=== PATIENT | male | born 1985 | race Caucasian/White ===

== ENCOUNTER 2016-07-31 00:10 | Emergency (ER) | payer OTHER ==
--- NOTE | 2016-07-31 00:14 | EDPHY ---
H & P HPI/ROS: HPI CHIEF COMPLAINT: Diarrhea, generalized weakness, lightheadedness HISTORY OF PRESENT ILLNESS: This patient very pleasant 31-year-old male no significant medical history does not take any daily medications does present to the emergency room at 12:30 p.m. at night for nausea, diarrhea and feeling lightheaded. Patient tells me around 9 o'clock this evening history him some abdominal cramping across his entire abdomen became nauseous without vomiting he then went to the bathroom and had a large diarrheal bowel movement watery, no blood. He tells me this made him feel very lightheaded he had abdominal cramping he was having shivering and laid on the ground in the bathroom. States should bring continued for close to an hour they called the nurse hotline and was recommended to come to the emergency room. patient does tell me that he had 2 beers earlier. Upon arrival here in the emergency room he does not appear toxic he does appear slightly dehydrated his abdomen is soft nontender. Past Medical History: No significant medical history Past Surgical History: No significant surgical history Social History: occasional alcohol use, denies drugs or tobacco Family History: Noncontributory ROS REVIEW OF SYSTEMS: A comprehensive 10 point review of systems is otherwise negative aside from elements mentioned in the history of present illness. Exam Constitutional appears well nontoxic, triage nursing summary reviewed, vital signs reviewed, awake/alert. Eyes normal conjunctivae and sclera, EOMI, PERRLA. HENT normal inspection, atraumatic, moist mucus membranes, no epistaxis, neck supple/ no meningismus, no raccoon eyes. Respiratory clear to auscultation bilaterally, normal breath sounds, no respiratory distress, no wheezing. Cardiovascular rate normal, regular rhythm, no murmur, no edema, distal pulses normal. Gastrointestinal soft, non-tender, no rebound, no guarding, normal bowel sounds, no distension, no pulsatile mass. Genitourinary no CVA tenderness. Musculoskeletal no midline vertebral tenderness, full range of motion, no calf swelling, no tenderness of extremities, no meningismus, good pulses, neurovascularly intact. Skin pink, warm, & dry, no rash, skin atraumatic. Neurologic awake, alert and oriented x 3, AAOx3, moves all 4 extremities equally, motor intact, sensory intact, CN II-XII intact, normal cerebellar, normal vision, normal speech. Psychiatric normal mood/affect. Heme/Lymph/Immune no lymphadenopathy. Differential Diagnosis: Includes but is not limited to in a particular order dehydration, electrolyte abnormality, acute nausea vomiting and diarrhea, viral illness, diarrheal illness, doubt acute appendicitis Medical Decision Making: this patient had an IV established obtain blood work including abdominal labs, patient be hydrated 2 L normal saline bolus patient received IV Zofran 4 mg for nausea and will re-evaluate him at this time is abdomen is soft nontender I do not feel that he needs any imaging of his abdomen specifically I do not feel that he has acute appendicitis given benign Abdomen. Re-evaluation: 0336: re-examination at this time this patient is resting comfortably his abdomen is soft nontender no guarding or peritoneal signs. He ambulated well throughout the emergency room without any difficulty he is not vomiting. He p.o. challenge well as blood work is reassuring for mild leukocytosis most likely from acute nausea vomiting and diarrhea. He feels comfortable going home does understand return emergency room if develops any worsening symptoms includes abdominal pain fever or vomiting. He did receive 2 L and Zofran here in emergency room and feels much better. He is requesting discharge. Source: Patient Constitutional: Initial Vital Signs Temperature (C) 36.5 C 07/31/16 00:14 Heart Rate 104 H 07/31/16 00:14 Respiratory Rate 18 07/31/16 00:14 Blood Pressure 106/75 07/31/16 00:14 O2 Sat (%) 99 07/31/16 00:14 O2 Delivery Mode Room Air Allergies/Adverse Reactions: Penicillins Allergy (Verified 07/31/16 00:19) Home Medications: Medication Instructions Recorded NK [No Known Home Meds] 07/31/16 Medical Decision Making - Data Points Laboratory Results: Laboratory Results 07/31/16 00:35 07/31/16 00:35 07/31/16 07/31/16 00:56 00:35 WBC 14.48 H 10^3/uL (3.80-9.50) RBC 4.84 10^6/uL (4.40-6.38) Hgb 15.0 g/dL (13.7-17.5) Hct 43.3 % (40.0-51.0) MCV 89.5 fL (81.5-99.8) MCH 31.0 pg (27.9-34.1) MCHC 34.6 g/dL (32.4-36.7) RDW 12.3 % (11.5-15.2) Plt Count 258 10^3/uL (150-400) MPV 9.9 fL (8.7-11.7) Neut % (Auto) 87.2 H % (39.3-74.2) Lymph % (Auto) 7.4 L % (15.0-45.0) Gove % (Auto) 4.8 % (4.5-13.0) Eos % (Auto) 0.1 L % (0.6-7.6) Baso % (Auto) 0.3 % (0.3-1.7) Nucleat RBC Rel Count 0.0 % (0.0-0.2) Absolute Neuts (auto) 12.63 H 10^3/uL (1.70-6.50) Absolute Lymphs (auto) 1.07 10^3/uL (1.00-3.00) Absolute Monos (auto) 0.70 10^3/uL (0.30-0.80) Absolute Eos (auto) 0.01 L 10^3/uL (0.03-0.40) Absolute Basos (auto) 0.04 10^3/uL (0.02-0.10) Absolute Nucleated RBC 0.00 10^3/uL (0-0.01) Immature Gran % 0.2 % (0.0-1.1) Immature Gran # 0.03 10^3/uL (0.00-0.10) Sodium 144 mEq/L (134-144) Potassium 4.3 mEq/L (3.5-5.2) Chloride 104 mEq/L (97-110) Carbon Dioxide 27 mEq/l (22-31) Anion Gap 13 mEq/L (8-16) BUN 15 mg/dL (7-23) Creatinine 1.0 mg/dL (0.7-1.3) Estimated GFR > 60 Glucose 102 H mg/dL (70-100) Calcium 9.8 mg/dL (8.5-10.4) Total Bilirubin 0.8 mg/dL (0.1-1.4) Conjugated Bilirubin 0.4 mg/dL (0.0-0.5) Unconjugated Bilirubin 0.4 mg/dL (0.0-1.1) AST 19 IU/L (17-59) ALT 28 IU/L (21-72) Alkaline Phosphatase 65 IU/L (38-126) Total Protein 7.8 g/dL (6.3-8.2) Albumin 4.8 g/dL (3.5-5.0) Lipase 70.0 IU/L (23-300) Urine Color YELLOW Urine Appearance CLEAR Urine pH 7.0 (5.0-7.5) Ur Specific [place] 1.012 (1.002-1.030) Urine Protein NEGATIVE (NEGATIVE) Urine Ketones TRACE H (NEGATIVE) Urine Blood NEGATIVE (NEGATIVE) Urine Nitrate NEGATIVE (NEGATIVE) Urine Bilirubin NEGATIVE (NEGATIVE) Urine Urobilinogen NEGATIVE EU (0.2-1.0) Ur Leukocyte Esterase NEGATIVE (NEGATIVE) Ur Culture Indicated? NOT INDICATED (NI) Urine Glucose NEGATIVE (NEGATIVE) Medications Given: Discontinued Medications Sodium Chloride (Ns) 2,000 mls @ 0 mls/hr IV ONCE ONE PRN Reason: Wide Open Stop: 07/31/16 00:31 Last Admin: 07/31/16 00:42 Dose: 2,000 mls Ondansetron HCl (Zofran) 4 mg IVP EDNOW ONE Stop: 07/31/16 00:31 Last Admin: 07/31/16 00:42 Dose: 4 mg Departure - Departure Disposition: Home, Routine, Self-Care Clinical Impression: Nausea and vomiting Qualifiers: Vomiting type: unspecified Vomiting Intractability: non-intractable Qualifier Code: (R11.2) Nausea with vomiting, unspecified Condition: Good Instructions: Near Syncope (ED), Acute Nausea and Vomiting (ED) Additional Instructions: 1. Stay well-hydrated 2. The emergency room if develops any worsening symptoms questions or concerns. 3. Return to the emergency room with worsening abdominal pain fever or vomiting.
[2016-07-31] MEDS ORDERED: NS 2,000 ML IV ONE (00:30)
[2016-07-31] MEDS ORDERED: ONDANSETRON 4 MG/2 ML VIAL IVP ONE (00:30)
[2016-07-31] MEDS ORDERED: ONDANSETRON 4 MG/2 ML VIAL ONE (00:32)
[2016-07-31 00:44] LABS: % IMMATURE GRANULYOCYTES 0.2 % (0.0-1.1); ABSOLUTE IMMATURE GRANULOCYTES 0.03 10^3/uL (0.00-0.10); ADD DIFF? NO; ADD MORPH? NO; ADD SCAN? NO; ATYPICAL LYMPHOCYTE FLAG 0 (0-99); FRAGMENT RBC FLAG 0 (0-99); HEMATOCRIT 43.3 % (40.0-51.0); LEFT SHIFT FLG 0 (0-99); LIPEMIA HEMOLYSIS FLAG 90 (0-99); MEAN CELL HEMOGLOBIN CONCENTR. 34.6 g/dL (32.4-36.7); MEAN CELL VOLUME 89.5 fL (81.5-99.8); MEAN PLATELET VOLUME 9.9 fL (8.7-11.7); PLATELET CLUMPS FLAG 0 (0-99); PLATELET COUNT 258 10^3/uL (150-400); RED BLOOD CELL COUNT 4.84 10^6/uL (4.40-6.38); RED CELL DISTRIBUTION WIDTH 12.3 % (11.5-15.2)
[2016-07-31 00:55] LABS: ALANINE AMINOTRANSFERASE 28 IU/L (21-72); ALBUMIN 4.8 g/dL (3.5-5.0); ALKALINE PHOSPHATASE 65 IU/L (38-126); ANION GAP 13 mEq/L (8-16); ASPARTATE AMINOTRANSFERASE 19 IU/L (17-59); BILIRUBIN,TOTAL 0.8 mg/dL (0.1-1.4); BILIRUBIN-CONJUGATED 0.4 mg/dL (0.0-0.5); BILIRUBIN-UNCONJUGATED 0.4 mg/dL (0.0-1.1); CALCIUM 9.8 mg/dL (8.5-10.4); CARBON DIOXIDE 27 mEq/l (22-31); CHLORIDE 104 mEq/L (97-110); GLOMERULAR FILTRATION RATE > 60; GLUCOSE 102 mg/dL (70-100); POTASSIUM 4.3 mEq/L (3.5-5.2); SODIUM 144 mEq/L (134-144); TOTAL PROTEIN 7.8 g/dL (6.3-8.2)
[2016-07-31 01:08] LABS: COLOR YELLOW; LEUKOCYTE ESTERASE,URINE NEGATIVE (NEGATIVE); NITRITE,URINE NEGATIVE (NEGATIVE)
[2016-07-31 04:05] VITALS: RESP 16; O2SAT 96
[2016-07-31 04:45] VITALS: BP 110/74; PULSE 99; TEMP 100.8
== END 2016-07-31 04:45 | disposition home or self-care (01) ==
DX: R11.2 Nausea with vomiting, unspecified (principal)
CPT/HCPCS: 96374; J2405